=== PATIENT | male | born 1985 | race Caucasian/White ===

== ENCOUNTER 2021-03-21 16:21 | Emergency (ER) | payer MEDICARE, MEDICAID ==
--- NOTE | 2021-03-21 17:03 | EDM.PDOC ---
ED HPI GENERAL MEDICAL PROBLEM - General Chief Complaint: Respiratory Problem Stated Complaint: COUGH AND BURNING IN LUNGS Time Seen by Provider: 03/21/21 16:53 Source of Information: Reports: Patient History Limitations: Reports: No Limitations - History of Present Illness INITIAL COMMENTS - FREE TEXT/NARRATIVE: pt arrived feelig sob and coughing. He has been fatiqued. He is coughing but not raising sputum. He does not have a fever. Onset: Gradual, Other ( This has been going on on and off for about 3 weks. ) Duration: Day(s): Location: Reports: Chest Associated Symptoms: Reports: Cough, Shortness of Breath - Related Data Allergies Allergy/AdvReac Type Severity Reaction Status Date / Time No Known Allergies Allergy Verified 03/21/21 16:47 Home Meds: Home Meds D-Amphetamine 20 mg PO DAILY 12/18/13 [History] Ibuprofen [Motrin] 600 mg PO Q6H PRN 12/18/13 [History] Mirtazapine 30 mg PO BEDTIME 12/18/13 [History] OLANZapine 20 mg PO BEDTIME 12/18/13 [History] OLANZapine [Olanzapine] 5 mg PO ASDIRECTED PRN 12/18/13 [History] Omeprazole 20 mg PO DAILY 12/18/13 [History] Paliperidone [Invega] 9 mg PO DAILY 12/18/13 [History] buPROPion HCL [Bupropion Xl] 300 mg PO DAILY 12/18/13 [History] Dextroamphetamine/Amphetamine [Adderall 20 mg Tablet] 20 mg PO DAILY 03/21/21 [History] Methylphenidate [Ritalin SR] 20 mg PO DAILY 03/21/21 [History] [place]-3/DHA/Epa/Fish Oil [Fish Oil 1,000 mg Softgel] 1 tab PO DAILY 03/21/21 [History] Social & Family History - Tobacco Use Tobacco Use Status *Q: Never Tobacco User - Caffeine Use Caffeine Use: Reports: Coffee - Recreational Drug Use Recreational Drug Use: No ED ROS GENERAL - Review of Systems Review Of Systems: See Below Constitutional: Reports: Malaise, Other (pt has had a cough for about 3 weeks. ) HEENT: Reports: No Symptoms Respiratory: Reports: Shortness of Breath, Cough Cardiovascular: Reports: No Symptoms Endocrine: Reports: No Symptoms GI/Abdominal: Reports: No Symptoms, Other (pt does have a history of chronic diarrhea. ) : Reports: No Symptoms Musculoskeletal: Reports: No Symptoms Skin: Reports: No Symptoms ED EXAM, GENERAL - Physical Exam Exam: See Below Free Text/Narrative:: pt arrived with a cough, feeling sob. This has been going on for about 3 weeks. Exam Limited By: No Limitations General Appearance: Alert, No Apparent Distress, Other (pupils are equal and reactive. ) Ears: Normal TMs Nose: Normal Inspection Throat/Mouth: Normal Inspection Head: Atraumatic Neck: Normal Inspection Respiratory/Chest: No Respiratory Distress, Other (lung s sound clear. ) Cardiovascular: Regular Rate, Rhythm GI/Abdominal: Soft, Non-Tender (Male) Exam: Normal Inspection Rectal (Males) Exam: Deferred Back Exam: Normal Inspection Extremities: Normal Inspection Neurological: Alert, Oriented, Normal Cognition Psychiatric: Anxious Course - Vital Signs Last Recorded V/S: Last Vital Signs Temp 36.4 C 03/21/21 16:52 Pulse 69 03/21/21 16:52 Resp 16 03/21/21 16:52 BP 134/77 03/21/21 16:52 Pulse Ox 93 L 03/21/21 16:52 - Orders/Labs/Meds Orders: Active Orders 24 hr Category Date Time Status Chest 2V [CR] Stat Exams 03/21/21 17:04 Ordered Labs: Laboratory Tests 03/21/21 03/21/21 03/21/21 Range/Units 17:12 17:12 17:12 WBC 9.2 (4.5-11.0) K/uL RBC 4.84 (4.30-5.90) M/uL Hgb 14.9 (12.0-15.0) g/dL Hct 45.6 (40.0-54.0) % MCV 94 (80-98) fL MCH 31 (27-31) pg MCHC 33 (32-36) % Plt Count 259 (150-400) K/uL Neut % (Auto) 70.4 H (36-66) % Lymph % (Auto) 19.5 L (24-44) % [place] % (Auto) 7.4 H (2-6) % Eos % (Auto) 2.3 (2-4) % Baso % (Auto) 0.4 (0-1) % Sodium 134 L (140-148) mmol/L Potassium 4.7 (3.6-5.2) mmol/L Chloride 101 (100-108) mmol/L Carbon Dioxide 26 (21-32) mmol/L Anion Gap 11.7 (5.0-14.0) mmol/L BUN 15 (7-18) mg/dL Creatinine 1.0 (0.8-1.3) mg/dL Est Cr Clr Drug Dosing 108.77 mL/min Estimated GFR (MDRD) > 60 (>60) Glucose 91 (74-106) mg/dL Calcium 9.1 (8.5-10.1) mg/dL Total Bilirubin 0.4 (0.2-1.0) mg/dL AST 34 (15-37) U/L ALT 36 (12-78) U/L Alkaline Phosphatase 58 (46-116) U/L C-Reactive Protein (0.0-0.3) mg/dL Total Protein 7.9 (6.4-8.2) g/dL Albumin 3.8 (3.4-5.0) g/dL Globulin 4.1 H (2.3-3.5) g/dL Albumin/Globulin Ratio 0.9 L (1.2-2.2) SARS CoV-2 RNA Rapid JUANITA Negative 03/21/21 Range/Units 17:12 WBC (4.5-11.0) K/uL RBC (4.30-5.90) M/uL Hgb (12.0-15.0) g/dL Hct (40.0-54.0) % MCV (80-98) fL MCH (27-31) pg MCHC (32-36) % Plt Count (150-400) K/uL Neut % (Auto) (36-66) % Lymph % (Auto) (24-44) % [place] % (Auto) (2-6) % Eos % (Auto) (2-4) % Baso % (Auto) (0-1) % Sodium (140-148) mmol/L Potassium (3.6-5.2) mmol/L Chloride (100-108) mmol/L Carbon Dioxide (21-32) mmol/L Anion Gap (5.0-14.0) mmol/L BUN (7-18) mg/dL Creatinine (0.8-1.3) mg/dL Est Cr Clr Drug Dosing mL/min Estimated GFR (MDRD) (>60) Glucose (74-106) mg/dL Calcium (8.5-10.1) mg/dL Total Bilirubin (0.2-1.0) mg/dL AST (15-37) U/L ALT (12-78) U/L Alkaline Phosphatase (46-116) U/L C-Reactive Protein 0.24 (0.0-0.3) mg/dL Total Protein (6.4-8.2) g/dL Albumin (3.4-5.0) g/dL Globulin (2.3-3.5) g/dL Albumin/Globulin Ratio (1.2-2.2) SARS CoV-2 RNA Rapid JUANITA - Re-Assessments/Exams Free Text/Narrative Re-Assessment/Exam: 03/21/21 17:59 chest xray did not reveal a infiltrate. Wbc had a slight shift. Pt was covid neg. Departure - Departure Time of Disposition: 18:00 Disposition: Home, Self-Care 01 Condition: Fair Clinical Impression: Bronchitis - Discharge Information Referrals: Krystian Guerra MD [Primary Care Provider] - Forms: ED Department Discharge Care Plan Goals: cool mist humidifier, push fluids, zithromax 500mg now and 250 daily for 5 days, robitussin ac 2 tsp at bedtime to suppress cough, rtc if problems. Sepsis Event Note (ED) - Focused Exam Vital Signs: Vital Signs Temp Pulse Resp BP Pulse Ox 03/21/21 16:52 36.4 C 69 16 134/77 93 L 03/21/21 16:47 36.4 C 69 16 134/77 93 L - My Orders Last 24 Hours: My Active Orders 03/21/21 17:04 Chest 2V [CR] Stat - Assessment/Plan Last 24 Hours: My Active Orders 03/21/21 17:04 Chest 2V [CR] Stat
--- NOTE | 2021-03-22 08:53 | CR ---
CHEST: 2 view CLINICAL HISTORY:SOB COMPARISON:None FINDINGS: There is less than optimal inspiration. There appear to be prominent cardiac fat pads.. The heart size, pulmonary vascularity and hilar structures are normal. No infiltrate effusion or pneumothorax is seen. IMPRESSION: Poor inspiratory level exaggerates lung markings and heart size No acute cardiopulmonary process
== END 2021-03-21 18:07 | disposition home or self-care (01) ==
LOC: JP.ED 16:21
DX: J40 Bronchitis, not specified as acute or chronic (principal); Z20.822 Contact with and (suspected) exposure to COVID-19; Z79.899 Other long term (current) drug therapy
CPT/HCPCS: 36415; 71046; 80053; 85025; 86140; 99283; U0002

== ENCOUNTER 2021-04-03 18:43 | Emergency (ER) | payer MEDICARE, MEDICAID ==
--- NOTE | 2021-04-03 20:59 | EDM.PDOC ---
ED HPI GENERAL MEDICAL PROBLEM - General Chief Complaint: General Stated Complaint: COUGH WITH CHEST PAIN Time Seen by Provider: 04/03/21 20:30 Source of Information: Reports: Patient History Limitations: Reports: No Limitations - History of Present Illness INITIAL COMMENTS - FREE TEXT/NARRATIVE: 35-year-old male with a lingering cough for the past 2 weeks. Had a course of Zithromax which did not help, still is coughing a lot at night. Onset: Gradual Duration: Week(s): (Symptoms have been waxing and waning for the last 2 to 3 weeks) Location: Reports: Chest Improves with: Reports: None Worsens with: Reports: Other (Activity sometimes causes some increased wheezing and cough) - Related Data Allergies Allergy/AdvReac Type Severity Reaction Status Date / Time No Known Allergies Allergy Verified 04/03/21 20:10 Home Meds: Home Meds Mirtazapine 30 mg PO BEDTIME 12/18/13 [History] OLANZapine 20 mg PO BEDTIME 12/18/13 [History] Omeprazole 20 mg PO DAILY 12/18/13 [History] Paliperidone [Invega] 9 mg PO DAILY 12/18/13 [History] buPROPion HCL [Bupropion Xl] 300 mg PO DAILY 12/18/13 [History] Dextroamphetamine/Amphetamine [Adderall 20 mg Tablet] 20 mg PO DAILY 03/21/21 [History] Methylphenidate [Ritalin SR] 20 mg PO DAILY 03/21/21 [History] [place]-3/DHA/Epa/Fish Oil [Fish Oil 1,000 mg Softgel] 1 tab PO DAILY 03/21/21 [History] Past Medical History HEENT History: Reports: None Gastrointestinal History: Reports: GERD Musculoskeletal History: Reports: Arthritis, Back Pain, Chronic, Other (See Below) Other Musculoskeletal History: bulging disc on spine Psychiatric History: Reports: Anxiety, Bipolar, Depression, Other (See Below) Other Psychiatric History: alcohol syndrome Endocrine/Metabolic History: Reports: Obesity/BMI 30+ - Past Surgical History Head Surgeries/Procedures: Reports: None HEENT Surgical History: Reports: Tonsillectomy Endocrine Surgical History: Reports: None Musculoskeletal Surgical History: Reports: None Dermatological Surgical History: Reports: None Social & Family History - Tobacco Use Tobacco Use Status *Q: Never Tobacco User - Caffeine Use Caffeine Use: Reports: Coffee - Recreational Drug Use Recreational Drug Use: No ED ROS GENERAL - Review of Systems Review Of Systems: See Below Constitutional: Denies: Fever, Chills HEENT: Reports: Rhinitis (Mild rhinitis). Denies: Throat Pain Respiratory: Reports: Shortness of Breath, Cough. Denies: Sputum Cardiovascular: Denies: Chest Pain GI/Abdominal: Denies: Nausea, Vomiting Skin: Denies: Rash Neurological: Reports: No Symptoms. Denies: Headache Psychiatric: Reports: No Symptoms ED EXAM, GENERAL - Physical Exam Exam: See Below Exam Limited By: No Limitations General Appearance: Alert, No Apparent Distress Ears: Normal TMs Head: Atraumatic Respiratory/Chest: No Respiratory Distress, Lungs Clear, Other (Even with forced expiration I cannot produce wheezes) Cardiovascular: Regular Rate, Rhythm Neurological: Alert, Oriented Skin Exam: Warm, Dry Course - Vital Signs Last Recorded V/S: Last Vital Signs Temp 96.7 F L 04/03/21 20:14 Pulse 107 H 04/03/21 20:14 Resp 18 04/03/21 20:14 BP 105/68 04/03/21 20:14 Pulse Ox 100 04/03/21 20:14 - Re-Assessments/Exams Free Text/Narrative Re-Assessment/Exam: 04/04/21 00:14 Reviewed the patient's chart and he was not placed on steroids but was placed on a course of Zithromax. He likely has some lingering inflammatory bronchitis and would benefit more from a tapering course of steroids. He will be started on 40 mg of prednisone daily tapering over 7 days. He can recheck in 4 to 5 days if not improving. Departure - Departure Time of Disposition: 21:36 Disposition: Home, Self-Care 01 Clinical Impression: Bronchitis - Discharge Information Instructions: Acute Bronchitis, Adult Referrals: Krystian Guerra MD [Primary Care Provider] - Forms: ED Department Discharge Care Plan Goals: Try tapering prednisone as prescribed, start with your first dose tomorrow. Activity as tolerated and return in 5 to 7 days if not improving satisfactorily. Sepsis Event Note (ED) - Evaluation Sepsis Screening Result: No Definite Risk - Focused Exam Vital Signs: Vital Signs Temp Pulse Resp BP Pulse Ox 04/03/21 20:14 96.7 F L 107 H 18 105/68 100 04/03/21 20:13 96.7 F L 107 H 18 105/68 100
== END 2021-04-03 21:37 | disposition home or self-care (01) ==
LOC: JP.ED 18:43
DX: J40 Bronchitis, not specified as acute or chronic (principal); K21.9 Gastro-esophageal reflux disease without esophagitis; M19.90 Unspecified osteoarthritis, unspecified site; E66.9 Obesity, unspecified; Z68.1 Body mass index [BMI] 19.9 or less, adult; Z79.899 Other long term (current) drug therapy
CPT/HCPCS: 99283

== ENCOUNTER 2022-03-01 15:47 | Emergency (ER) | payer MEDICARE, MEDICAID ==
[2022-03-01 17:06] LABS: ESTIMATED GFR 89 mL/min (>60)
== END 2022-03-01 19:00 | disposition home or self-care (01) ==
LOC: JP.ED 15:47
DX: R20.0 Anesthesia of skin (principal); K52.9 Noninfective gastroenteritis and colitis, unspecified; M54.50 Low back pain, unspecified; M54.6 Pain in thoracic spine; R10.9 Unspecified abdominal pain; G89.29 Other chronic pain; K21.9 Gastro-esophageal reflux disease without esophagitis; F41.9 Anxiety disorder, unspecified; F32.A Depression, unspecified; E66.9 Obesity, unspecified; Z79.899 Other long term (current) drug therapy
CPT/HCPCS: 36415; 80053; 82550; 85025; 86618; 99284

== ENCOUNTER 2022-04-04 19:47 | Emergency (ER) | payer MEDICARE, MEDICAID ==
[2022-04-04] MEDS ORDERED: Gabapentin 100 MG Cap ONE (20:29)
== END 2022-04-04 22:30 | disposition home or self-care (01) ==
LOC: JP.ED 19:47
DX: M25.851 Other specified joint disorders, right hip (principal); M54.2 Cervicalgia; G89.29 Other chronic pain; Z96.641 Presence of right artificial hip joint
CPT/HCPCS: 99283; A9270

== ENCOUNTER 2022-05-08 00:25 | Emergency (ER) | payer MEDICARE, MEDICAID ==
[2022-05-08] MEDS ORDERED: diphenhydrAMINE 25 MG/10 ML Cup PO ONE (00:50)
[2022-05-08] MEDS ORDERED: diphenhydrAMINE 25 MG Cap PO ONE (00:54)
== END 2022-05-08 01:56 | disposition home or self-care (01) ==
LOC: JP.ED 00:25
DX: F41.9 Anxiety disorder, unspecified (principal); F32.A Depression, unspecified; R05.3 Chronic cough; K21.9 Gastro-esophageal reflux disease without esophagitis; E66.9 Obesity, unspecified; Z79.899 Other long term (current) drug therapy; Z20.822 Contact with and (suspected) exposure to COVID-19
CPT/HCPCS: 36415; 71045; 80053; 80305; 81001; 83605; 84484; 85025; 93005; 99285; A9270; J2060; U0002

== ENCOUNTER 2022-05-08 14:59 | Emergency (ER) | payer MEDICARE, MEDICAID ==
[2022-05-08 16:34] LABS: ESTIMATED GFR 89 mL/min (>60); TROPONIN I HIGH SENSITIVITY 5.8 pg/mL (<=60.3)
[2022-05-08] MEDS ORDERED: Aspirin 81 MG Tab.Chew PO ONE (16:55)
[2022-05-08] MEDS ORDERED: LORazepam 2 MG/ML SDV IM ONE (17:15)
== END 2022-05-08 21:02 | disposition home or self-care (01) ==
LOC: JP.ED 14:59
DX: F41.9 Anxiety disorder, unspecified (principal); F31.81 Bipolar II disorder; K21.9 Gastro-esophageal reflux disease without esophagitis; E66.9 Obesity, unspecified; Z68.30 Body mass index [BMI] 30.0-30.9, adult; Z86.16 Personal history of COVID-19; Z79.899 Other long term (current) drug therapy
CPT/HCPCS: 36415; 71045; 71045-26; 80053; 80305-QW; 81001; 83605; 84484; 85025; 96372; 99285; A9270-GY; J2060

== ENCOUNTER 2022-05-17 23:24 | Emergency (ER) | payer MEDICARE, MEDICAID ==
[2022-05-18 00:41] LABS: TROPONIN I HIGH SENSITIVITY 8.3 pg/mL (<=60.3)
== END 2022-05-18 01:36 | disposition home or self-care (01) ==
LOC: JP.ED 23:24
DX: R07.89 Other chest pain (principal); K21.9 Gastro-esophageal reflux disease without esophagitis; E66.9 Obesity, unspecified; Z68.37 Body mass index [BMI] 37.0-37.9, adult; Z86.16 Personal history of COVID-19; Z79.899 Other long term (current) drug therapy
CPT/HCPCS: 36415; 71045; 71045-26; 80048; 84484; 85025; 93005; 99285

== ENCOUNTER 2022-05-31 23:29 | Emergency (ER) | payer MEDICARE, MEDICAID | END 2022-06-01 01:34 | disposition home or self-care (01) | LOC: JP.ED 23:29 | DX: F41.9 Anxiety disorder, unspecified (principal); K21.9 Gastro-esophageal reflux disease without esophagitis; M19.90 Unspecified osteoarthritis, unspecified site; E66.9 Obesity, unspecified; Z68.36 Body mass index [BMI] 36.0-36.9, adult; Z79.899 Other long term (current) drug therapy | CPT/HCPCS: 99283 ==

== ENCOUNTER 2022-08-24 20:03 | Emergency (ER) | payer MEDICARE, MEDICAID ==
[2022-08-24] MEDS ORDERED: Fluconazole 150 MG Tab PO ONE (22:13)
[2022-08-24] MEDS ORDERED: Clotrimazole 1% Crm 30 GM Tube TOP SCH (22:15)
== END 2022-08-24 22:39 | disposition home or self-care (01) ==
LOC: JP.ED 20:03
DX: B37.2 Candidiasis of skin and nail (principal); K21.9 Gastro-esophageal reflux disease without esophagitis; E66.9 Obesity, unspecified; Z68.41 Body mass index [BMI] 40.0-44.9, adult; Z86.16 Personal history of COVID-19
CPT/HCPCS: 99282; A9270

== ENCOUNTER 2022-10-09 11:53 | Emergency (ER) | payer MEDICARE, MEDICAID ==
[2022-10-09 14:19] LABS: ESTIMATED GFR 89 mL/min (>60)
== END 2022-10-09 17:00 | disposition home or self-care (01) ==
LOC: JP.ED 11:53
DX: R10.11 Right upper quadrant pain (principal); R10.13 Epigastric pain; K21.9 Gastro-esophageal reflux disease without esophagitis; E66.9 Obesity, unspecified; Z68.37 Body mass index [BMI] 37.0-37.9, adult; Z86.16 Personal history of COVID-19; Z79.899 Other long term (current) drug therapy
CPT/HCPCS: 36415; 71046; 71046-26; 80053; 83605; 83690; 85025; 86140; 99284

== ENCOUNTER 2023-02-24 11:31 | Emergency (ER) | payer OTHER, MEDICARE, MEDICAID | END 2023-02-24 15:40 | disposition home or self-care (01) | LOC: JP.ED 11:31 | DX: S06.0X0A Concussion without loss of consciousness, initial encounter (principal); K21.9 Gastro-esophageal reflux disease without esophagitis; E66.9 Obesity, unspecified; Z68.39 Body mass index [BMI] 39.0-39.9, adult; Z87.891 Personal history of nicotine dependence; V89.2XXA Person injured in unspecified motor-vehicle accident, traffic, initial encounter | CPT/HCPCS: 70450; 99284 ==

== ENCOUNTER 2023-06-16 21:37 | Emergency (ER) | payer MEDICARE, MEDICAID | END 2023-06-16 22:43 | disposition home or self-care (01) | LOC: JP.ED 21:37 | DX: J18.9 Pneumonia, unspecified organism (principal); F17.210 Nicotine dependence, cigarettes, uncomplicated; K21.9 Gastro-esophageal reflux disease without esophagitis; Z86.16 Personal history of COVID-19; Z79.899 Other long term (current) drug therapy; Z68.37 Body mass index [BMI] 37.0-37.9, adult | CPT/HCPCS: 99284 ==

== ENCOUNTER 2023-07-05 13:42 | Emergency (ER) | payer MEDICARE, MEDICAID | END 2023-07-05 14:57 | disposition home or self-care (01) | LOC: JP.ED 13:42 | DX: F06.4 Anxiety disorder due to known physiological condition (principal); F41.9 Anxiety disorder, unspecified; K21.9 Gastro-esophageal reflux disease without esophagitis; Z86.16 Personal history of COVID-19; E66.9 Obesity, unspecified; Z68.36 Body mass index [BMI] 36.0-36.9, adult | CPT/HCPCS: 99284 ==

== ENCOUNTER 2023-08-18 07:56 | Emergency (ER) | payer MEDICARE, MEDICAID ==
[2023-08-18] MEDS: Ondansetron 4 MG Tab.DIS PO ONE (09:01)
[2023-08-18 09:03] LABS: CORONAVIRUS COVID-19 NAA NEGATIVE (NEGATIVE); INFLUENZA A NAA POSITIVE (NEGATIVE); INFLUENZA B NAA NEGATIVE (NEGATIVE); RESPIRATORY SYNCYTIAL VIR NAA NEGATIVE (NEGATIVE)
[2023-08-18 09:06] LABS: BASOPHILS PERCENT AUTO 0.5 % (0.1-1.3); EOSINOPHILS ABSOLUTE AUTO 0.03 K/uL (0.00-0.40); EOSINOPHILS PERCENT AUTO 0.7 % (0.0-5.4); HEMOGLOBIN 14.4 g/dL (12.9-16.9); IMMATURE GRAN PERCENT AUTO 0.2 % (0.0-0.7); LYMPHOCYTES ABSOLUTE AUTO 0.51 K/uL (0.8-3.3); LYMPHOCYTES PERCENT AUTO 12.5 % (11.4-47.7); MEAN CORPUSCULAR HEMOGLOBIN 31.1 pg (31.6-35.5); MEAN CORPUSCULAR HGB CONC 33.5 g/dL (31.6-35.5); MEAN CORPUSCULAR VOLUME 92.9 fL (81.4-99.0); MONOCYTES ABSOLUTE AUTO 0.52 K/uL (0.20-0.90); MONOCYTES PERCENT AUTO 12.8 % (3.3-12.6); NEUTROPHILS ABSOLUTE AUTO 2.98 K/uL (1.0-7.6); NEUTROPHILS PERCENT AUTO 73.3 % (40.0-78.1); PLATELET COUNT,PLT 187 K/uL (130-375); RED BLOOD CELL COUNT 4.63 M/uL (4.14-5.76); WHITE BLOOD CELL COUNT,WBC 4.1 K/uL (3.2-11.0)
[2023-08-18 09:07] LABS: BASE EXCESS VENOUS 1.9 mm/L; BICARBONATE,VENOUS 25.6 mmol/L; CARBOXYHEMOGLOBIN 1.7 % (0.0-1.6); METHEMOGLOBIN 0.9 %; O2 SATURATION VENOUS 79.5; OXYHEMOGLOBIN 77.4 %; PCO2 VENOUS 38.9 mm/Hg; PH,VENOUS 7.434 (7.350-7.450)
[2023-08-18 09:09] LABS: BASOPHILS ABSOLUTE AUTO 0.02 K/uL (0.00-0.10); IMMATURE GRAN ABSOLUTE AUTO 0.01 K/uL (0.00-0.23)
[2023-08-18 09:31] LABS: A/G RATIO 0.8 (1.2-2.2); ALANINE AMINOTRANSFERASE,ALT 18 U/L (12-78); ALBUMIN 3.6 g/dL (3.4-5.0); ALKALINE PHOSPHATASE 60 U/L (46-116); ASPARTATE AMNIOTRANSFERASE,AST 16 U/L (15-37); BILIRUBIN TOTAL 0.4 mg/dL (0.2-1.0); BLOOD UREA NITROGEN,BUN 17 mg/dL (7-18); CALCIUM 8.3 mg/dL (8.5-10.1); CARBON DIOXIDE,CO2 27 mmol/L (21-32); CHLORIDE,CL 101 mmol/L (100-108); CREATININE 1.1 mg/dL (0.8-1.3); EST CRCL DRUG DOSING (CG) 94.02 mL/min; ESTIMATED GFR 88 mL/min (>60); GLUCOSE RANDOM 88 mg/dL (74-106); POTASSIUM,K 3.7 mmol/L (3.6-5.2); SODIUM,NA 136 mmol/L (140-148)
[2023-08-18 09:34] LABS: ANION GAP 11.7 mmol/L (5.0-14.0)
== END 2023-08-18 10:47 | disposition home or self-care (01) ==
LOC: JP.ED 07:56
DX: J10.1 Influenza due to other identified influenza virus with other respiratory manifestations (principal); K21.9 Gastro-esophageal reflux disease without esophagitis; Z86.16 Personal history of COVID-19
CPT/HCPCS: 0241U; 36415; 71045; 80053; 82803; 83605; 84145; 85025; 99284; Q0162

== ENCOUNTER 2024-06-10 08:10 | Emergency (ER) | payer MEDICARE, MEDICAID ==
[2024-06-10 09:28] LABS: CORONAVIRUS COVID-19 NAA POSITIVE (NEGATIVE); INFLUENZA A NAA NEGATIVE (NEGATIVE); INFLUENZA B NAA NEGATIVE (NEGATIVE); RESPIRATORY SYNCYTIAL VIR NAA NEGATIVE (NEGATIVE)
== END 2024-06-10 09:47 | disposition home or self-care (01) ==
LOC: JP.ED 08:10
DX: U07.1 COVID-19 (principal); K21.9 Gastro-esophageal reflux disease without esophagitis; E66.9 Obesity, unspecified; Z86.16 Personal history of COVID-19; Z90.89 Acquired absence of other organs; Z79.899 Other long term (current) drug therapy; Z68.37 Body mass index [BMI] 37.0-37.9, adult
CPT/HCPCS: 0241U; 99284

== ENCOUNTER 2024-08-06 07:37 | Emergency (ER) | payer MEDICARE, MEDICAID ==
[2024-08-06 08:31] LABS: CORONAVIRUS COVID-19 NAA NEGATIVE (NEGATIVE); INFLUENZA A NAA NEGATIVE (NEGATIVE); INFLUENZA B NAA NEGATIVE (NEGATIVE); RESPIRATORY SYNCYTIAL VIR NAA POSITIVE (NEGATIVE)
== END 2024-08-06 09:34 | disposition home or self-care (01) ==
LOC: JP.ED 07:37
DX: R50.9 Fever, unspecified (principal); R05.9 Cough, unspecified; B97.4 Respiratory syncytial virus as the cause of diseases classified elsewhere; K21.9 Gastro-esophageal reflux disease without esophagitis; E66.9 Obesity, unspecified; Z79.899 Other long term (current) drug therapy; Z68.38 Body mass index [BMI] 38.0-38.9, adult
CPT/HCPCS: 0241U; 99283

== ENCOUNTER 2024-08-26 13:29 | Emergency (ER) | payer MEDICARE, MEDICAID | END 2024-08-26 14:46 | disposition home or self-care (01) | LOC: JP.ED 13:29 | DX: R42 Dizziness and giddiness (principal); T46.905A Adverse effect of unspecified agents primarily affecting the cardiovascular system, initial encounter; K21.9 Gastro-esophageal reflux disease without esophagitis; E66.9 Obesity, unspecified; Z68.37 Body mass index [BMI] 37.0-37.9, adult; Z79.899 Other long term (current) drug therapy | CPT/HCPCS: 99283 ==

== ENCOUNTER 2024-09-24 15:00 | Emergency (ER) | payer MEDICARE, MEDICAID ==
[2024-09-24 16:19] LABS: BASOPHILS ABSOLUTE AUTO 0.05 K/uL (0.00-0.10); BASOPHILS PERCENT AUTO 0.5 % (0.1-1.3); EOSINOPHILS ABSOLUTE AUTO 0.29 K/uL (0.00-0.40); EOSINOPHILS PERCENT AUTO 3.2 % (0.0-5.4); HEMATOCRIT 43.5 % (38.4-49.7); HEMOGLOBIN 14.8 g/dL (12.9-16.9); IMMATURE GRAN ABSOLUTE AUTO 0.03 K/uL (0.00-0.23); IMMATURE GRAN PERCENT AUTO 0.3 % (0.0-0.7); LYMPHOCYTES ABSOLUTE AUTO 1.29 K/uL (0.8-3.3); LYMPHOCYTES PERCENT AUTO 14.2 % (11.4-47.7); MEAN CORPUSCULAR HEMOGLOBIN 32.7 pg (31.6-35.5); MEAN CORPUSCULAR VOLUME 96.2 fL (81.4-99.0); MONOCYTES ABSOLUTE AUTO 0.68 K/uL (0.20-0.90); MONOCYTES PERCENT AUTO 7.5 % (3.3-12.6); NEUTROPHILS ABSOLUTE AUTO 6.76 K/uL (1.0-7.6); NEUTROPHILS PERCENT AUTO 74.3 % (40.0-78.1); PLATELET COUNT,PLT 203 K/uL (130-375); RED BLOOD CELL COUNT 4.52 M/uL (4.14-5.76); WHITE BLOOD CELL COUNT,WBC 9.1 K/uL (3.2-11.0)
[2024-09-24 16:40] LABS: ALANINE AMINOTRANSFERASE,ALT 25 U/L (12-78); ALBUMIN 3.6 g/dL (3.4-5.0); ALKALINE PHOSPHATASE 65 U/L (46-116); ANION GAP 9.1 mmol/L (5.0-14.0); ASPARTATE AMNIOTRANSFERASE,AST 18 U/L (15-37); BILIRUBIN TOTAL 0.5 mg/dL (0.2-1.0); BLOOD UREA NITROGEN,BUN 13 mg/dL (7-18); CALCIUM 9.3 mg/dL (8.5-10.1); CARBON DIOXIDE,CO2 29 mmol/L (21-32); CHLORIDE,CL 105 mmol/L (100-108); CREATININE 1.2 mg/dL (0.8-1.3); EST CRCL DRUG DOSING (CG) 88.02 mL/min; ESTIMATED GFR 79 mL/min (>60); GLUCOSE RANDOM 88 mg/dL (74-106); POTASSIUM,K 3.8 mmol/L (3.6-5.2); PROTEIN TOTAL,TP 7.4 g/dL (6.4-8.2); SODIUM,NA 143 mmol/L (140-148)
== END 2024-09-24 17:56 | disposition home or self-care (01) ==
LOC: JP.ED 15:00
DX: R20.0 Anesthesia of skin (principal); R07.9 Chest pain, unspecified; Z79.899 Other long term (current) drug therapy
CPT/HCPCS: 36415; 80053; 84484; 85025; 93005; 93010; 99283; 99285

== ENCOUNTER 2024-11-21 14:58 | Emergency (ER) | payer MEDICARE, MEDICAID | END 2024-11-21 15:59 | disposition home or self-care (01) | LOC: JP.ED 14:58 | DX: M25.512 Pain in left shoulder (principal); K21.9 Gastro-esophageal reflux disease without esophagitis; E66.9 Obesity, unspecified; Z79.899 Other long term (current) drug therapy; Z68.38 Body mass index [BMI] 38.0-38.9, adult | CPT/HCPCS: 73030-26-LT; 73030-LT; 99283 ==